=== PATIENT | female | born 1950 | race Caucasian/White ===

== ENCOUNTER 2017-10-28 20:00 | Inpatient (IN) ==
--- NOTE | 2017-10-28 20:14 | Emergency Department Note ---
Disposition Clinical Impression: Cellulitis Qualifiers: Site of cellulitis: extremity Site of cellulitis of extremity: lower extremity Laterality: left Qualified Code(s): L03.116 - Cellulitis of left lower limb Disposition: Admitted As Inpatient Condition: Fair General Adult HPI - General Chief complaint: ED Wound/Laceration Stated complaint: Abscess L Knee Nursing Notes Reviewed: Yes Vital Signs Reviewed: Yes - History of Present Illness HPI Narrative: 67-year-old female presents emergency department with concern for right lower extremity redness and swelling. Patient recently was on antibiotics from [place]. Was taking doxycycline. Patient states that they swelling or redness has gotten much worse. Patient denies any fevers. Denies any known spider or tick bites recently. Patient reports that the redness and swelling has started to radiate into the calf as well as her upper thigh. Patient denies IV drug use. Pain Scale: 4 - Related Data Home Medications Medication Instructions Recorded Confirmed Atorvastatin [Lipitor] 10 mg PO HS 10/28/17 10/28/17 Biotin 5,000 mcg PO 10/28/17 Calcium Carbonate/Vitamin D3 1 each PO DAILY 10/28/17 10/28/17 [Calcium 600 + Vit D Softgel] Dicyclomine [Bentyl] 10 mg PO QID 10/28/17 10/28/17 Esomeprazole Magnesium [Nexium] 40 mg PO BID 10/28/17 10/28/17 FLUoxetine HCl [Sarafem] 20 mg PO BID 10/28/17 10/28/17 Ferrous Sulfate 324 mg PO DAILY 10/28/17 10/28/17 Fexofenadine HCl [Allergy Relief] 180 mg PO DAILY 10/28/17 10/28/17 Gabapentin [Neurontin] 600 mg PO TID 10/28/17 10/28/17 Guaifenesin/Dm/Pseudoephedrine 1 each PO TID 10/28/17 10/28/17 [Capmist Dm Tablet] Ibuprofen [Motrin] 800 mg PO Q8HR 10/28/17 10/28/17 Multivit-Min/FA/Lycopen/Lutein 1 each PO DAILY 10/28/17 10/28/17 [Centrum Silver Tablet] Niacin [Plain Niacin] 500 mg PO DAILY 10/28/17 10/28/17 OxyCODONE ER (12 HR) [OxyCONTIN] 10 mg PO Q12HR 10/28/17 10/28/17 Raloxifene HCl 60 mg PO DAILY 10/28/17 10/28/17 Sulfamethoxazole/Trimeth DS 1 each PO BID 10/28/17 10/28/17 [Bactrim DS] Tizanidine HCl [Zanaflex] 4 mg PO HS 10/28/17 10/28/17 raNITIdine HCl [Zantac] 150 mg PO DAILY 10/28/17 10/28/17 valACYclovir [Valtrex] 500 mg PO DAILY 10/28/17 10/28/17 Allergies Allergy/AdvReac Type Severity Reaction Status Date / Time Oxytetracycline Allergy Hives Verified 10/28/17 20:05 [From Terramycin] All systems ED: reviewed and negative except as stated. Review of Systems: As Per HPI Constitutional: Denies: fever Cardiovascular: Denies: chest pain Respiratory: Denies: cough, dyspnea Gastrointestinal: Denies: abdominal pain, nausea, vomiting Genitourinary: Denies: urgency, dysuria, frequency Musculoskeletal: Reports: other (Pain behind left knee) Integumentary: Reports: other (Skin redness) Neurological: Denies: headache, numbness, paresthesias Endocrine: Denies: fatigue Physical Exam - Head Head exam: normocephalic - Eye Eye exam: Present: EOMI - ENT ENT exam: normal oropharynx - Neck Neck exam: Present: trachea midline - Chest Chest inspection: Present: symmetric chest wall rise - Respiratory Respiratory exam: Present: normal lung sounds bilaterally. Absent: respiratory distress - Cardiovascular Cardiovascular exam: Present: normal rhythm, tachycardia, normal heart sounds - Abdominal Exam Abdominal exam: Present: soft, Non-Tender. Absent: distention, guarding, rebound, rigidity - Extremities Exam Extremities exam: Present: other (Left lower extremity has erythema and redness behind the left knee in the popliteal fossa. There is no active area of drainage. No area of fluctuance. Neurovascularly intact) - Back Exam Back exam: Present: full ROM - Neurological Exam Neurological exam: Present: alert, oriented X3 - Psychiatric Psychiatric exam: Present: normal affect, normal mood - Skin Skin exam: Present: warm, dry, erythema (Of the left popliteal fossa) Course Vital Signs Temperature 100.1 F H 10/28/17 20:03 Pulse Rate 100 10/28/17 20:03 Respiratory Rate 16 10/28/17 20:03 Blood Pressure 174/78 10/28/17 20:03 O2 Sat by Pulse Oximetry 95 10/28/17 20:03 Temperature 98.7 F 10/29/17 07:16 Pulse Rate 105 10/29/17 07:16 Respiratory Rate 18 10/29/17 07:16 Blood Pressure 185/76 10/29/17 07:16 O2 Sat by Pulse Oximetry 95 10/29/17 07:16 Oxygen Delivery Oxygen Delivery Room Air Medical Decision Making - MDM Narrative Medical decision making narrative: 67-year-old female presents emergency department with concern for left lower extremity cellulitis. Patient is felt outpatient management with doxycycline. At this time, we obtained lower extremity CT and this reveals subcutaneous fat stranding and skin thickening predominantly in the posterior aspect of the left lower extremity compatible with cellulitis. There was noted visualize drainable fluid collection. No acute osseous normality. This is not a septic joint. Patient was able to ambulate on it. Patient started on vancomycin and Zosyn. Blood cultures were obtained. Lactic acid was normal. Patient does not have a leukocytosis. Kidney function was normal. Patient had a mildly elevated temperature at 100.1. However, we did lower this by giving antipyretics. Due to failing outpatient management, but is in the best interest of admitting this patient. 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 Family agrees with plan. Lower Extremity CT 10/28/17 20:23 IMPRESSION: 1. Subcutaneous fat stranding and skin thickening predominantly in the posterior aspect of the left lower extremity compatible with cellulitis versus bland edema. No drainable fluid collection. 2. No acute osseous abnormality. D/ / Jonathon Sharma MD / Jonathon Sharma MD Interpreting Provider: Jonathon Sharma MD - Lab Data Result diagrams: 10/29/17 04:05 10/29/17 04:05 Lab Results 10/28/17 10/28/17 10/28/17 Range/Units 20:26 20:26 20:26 WBC 7.0 (4.3-11.1) K/mcL RBC 4.12 (3.82-4.97) M/mcL Hgb 13.0 (11.5-15.4) g/dL Hct 38.1 (35.3-44.9) % MCV 92.5 (83.0-100.0) fL MCH 31.6 (28.0-33.3) pg MCHC 34.1 (31.6-35.5) g/dL RDW 15.6 H (11.5-14.5) % Plt Count 135 L (140-400) K/mcL MPV 10.6 (9.4-12.4) fL Immature Gran % 0.4 (0-4) % Seg Neutrophils % 76.1 % Lymphocytes % 14.4 % Monocytes % 8.5 % Eosinophils % 0.3 % Basophils % 0.3 % Neutrophils # 5.4 (1.6-8.9) K/mcL Lymphocytes # 1.0 (0.6-4.6) K/mcL Monocytes # 0.6 (0.0-1.3) K/mcL Eosinophils # 0.0 (0.0-0.6) K/mcL Basophils # 0.0 (0.0-0.2) K/mcL ESR 58 H (0-15) mm/hr PT (9.4-12.1) Seconds INR APTT (26.0-36.0) Seconds Sodium 134 L (136-145) mEq/L Potassium 3.9 (3.5-5.1) mEq/L Chloride 102 (98-107) mEq/L Carbon Dioxide 24 (23-29) mEq/L BUN 14 (8-23) mg/dL Creatinine 0.89 (0.60-1.20) mg/dL Est GFR ( Amer) > 60 (> 60) Est GFR (Non-Af Amer) > 60 (> 60) BUN/Creatinine Ratio 16 (6-26) Glucose 129 H (70-105) mg/dL Calculated Osmolality 280 (280-300) Lactic Acid (0.5-2.2) mmol/L Calcium 8.9 (8.6-10.3) mg/dL Magnesium (1.6-2.6) mg/dL Total Bilirubin (0.3-1.0) mg/dL AST (13-39) Units/L ALT (7-52) Units/L Alkaline Phosphatase (34-104) Units/L C-Reactive Protein 118 H (Less than 10) mg/L Serum Total Protein (6.4-8.9) g/dL Albumin (3.5-5.7) g/dL Globulin (2.4-3.5) g/dL Albumin/Globulin Ratio (1.1-2.2) 10/28/17 10/29/17 10/29/17 Range/Units 20:40 04:05 04:05 WBC 9.7 (4.3-11.1) K/mcL RBC 4.23 (3.82-4.97) M/mcL Hgb 13.4 (11.5-15.4) g/dL Hct 39.4 (35.3-44.9) % MCV 93.1 (83.0-100.0) fL MCH 31.7 (28.0-33.3) pg MCHC 34.0 (31.6-35.5) g/dL RDW 15.6 H (11.5-14.5) % Plt Count 141 (140-400) K/mcL MPV 10.6 (9.4-12.4) fL Immature Gran % 0.7 (0-4) % Seg Neutrophils % 78.0 % Lymphocytes % 12.6 % Monocytes % 8.4 % Eosinophils % 0.0 % Basophils % 0.3 % Neutrophils # 7.5 (1.6-8.9) K/mcL Lymphocytes # 1.2 (0.6-4.6) K/mcL Monocytes # 0.8 (0.0-1.3) K/mcL Eosinophils # 0.0 (0.0-0.6) K/mcL Basophils # 0.0 (0.0-0.2) K/mcL ESR (0-15) mm/hr PT 12.6 H (9.4-12.1) Seconds INR 1.1 APTT 28.7 (26.0-36.0) Seconds Sodium (136-145) mEq/L Potassium (3.5-5.1) mEq/L Chloride (98-107) mEq/L Carbon Dioxide (23-29) mEq/L BUN (8-23) mg/dL Creatinine (0.60-1.20) mg/dL Est GFR ( Amer) (> 60) Est GFR (Non-Af Amer) (> 60) BUN/Creatinine Ratio (6-26) Glucose (70-105) mg/dL Calculated Osmolality (280-300) Lactic Acid 1.1 (0.5-2.2) mmol/L Calcium (8.6-10.3) mg/dL Magnesium (1.6-2.6) mg/dL Total Bilirubin (0.3-1.0) mg/dL AST (13-39) Units/L ALT (7-52) Units/L Alkaline Phosphatase (34-104) Units/L C-Reactive Protein (Less than 10) mg/L Serum Total Protein (6.4-8.9) g/dL Albumin (3.5-5.7) g/dL Globulin (2.4-3.5) g/dL Albumin/Globulin Ratio (1.1-2.2) /16/18 Range/Units 04:05 WBC (4.3-11.1) K/mcL RBC (3.82-4.97) M/mcL Hgb (11.5-15.4) g/dL Hct (35.3-44.9) % MCV (83.0-100.0) fL MCH (28.0-33.3) pg MCHC (31.6-35.5) g/dL RDW (11.5-14.5) % Plt Count (140-400) K/mcL MPV (9.4-12.4) fL Immature Gran % (0-4) % Seg Neutrophils % % Lymphocytes % % Monocytes % % Eosinophils % % Basophils % % Neutrophils # (1.6-8.9) K/mcL Lymphocytes # (0.6-4.6) K/mcL Monocytes # (0.0-1.3) K/mcL Eosinophils # (0.0-0.6) K/mcL Basophils # (0.0-0.2) K/mcL ESR (0-15) mm/hr PT (9.4-12.1) Seconds INR APTT (26.0-36.0) Seconds Sodium 137 (136-145) mEq/L Potassium 3.8 (3.5-5.1) mEq/L Chloride 106 (98-107) mEq/L Carbon Dioxide 22 L (23-29) mEq/L BUN 13 (8-23) mg/dL Creatinine 0.86 (0.60-1.20) mg/dL Est GFR ( Amer) > 60 (> 60) Est GFR (Non-Af Amer) > 60 (> 60) BUN/Creatinine Ratio 15 (6-26) Glucose 124 H (70-105) mg/dL Calculated Osmolality 286 (280-300) Lactic Acid (0.5-2.2) mmol/L Calcium 8.7 (8.6-10.3) mg/dL Magnesium 1.9 (1.6-2.6) mg/dL Total Bilirubin 0.7 (0.3-1.0) mg/dL AST 31 (13-39) Units/L ALT 25 (7-52) Units/L Alkaline Phosphatase 68 (34-104) Units/L C-Reactive Protein (Less than 10) mg/L Serum Total Protein 6.8 (6.4-8.9) g/dL Albumin 3.8 (3.5-5.7) g/dL Globulin 3.0 (2.4-3.5) g/dL Albumin/Globulin Ratio 1.3 (1.1-2.2)
[2017-10-28] MEDS ORDERED: Isovue-370 500 ML INFUS..BTL IV ONE (20:23)
[2017-10-28] MEDS ORDERED: 0.9 % Sodium Chloride 1,000 ML IVC ONE (20:25)
[2017-10-28] MEDS ORDERED: *HR* FentaNYL (PF) 100 MCG/2 ML VIAL IVP ONE (20:25)
[2017-10-28 20:54] LABS: Basophils % 0.3 %; Eosinophils % 0.3 %; Hematocrit 38.1 % (35.3-44.9); Immature Granulocytes % 0.4 % (0-4); Lymphocytes % 14.4 %; Mean Corpuscular HGB Conc 34.1 g/dL (31.6-35.5); Mean Corpuscular Hemoglobin 31.6 pg (28.0-33.3); Mean Corpuscular Volume 92.5 fL (83.0-100.0); Mean Platelet Volume 10.6 fL (9.4-12.4); Monocytes # 0.6 K/mcL (0.0-1.3); Monocytes % 8.5 %; Neutrophils # 5.4 K/mcL (1.6-8.9); Platelet Count 135 K/mcL (140-400); Red Blood Count 4.12 M/mcL (3.82-4.97); Red Cell Distribution Width 15.6 % (11.5-14.5); Segmented Neutrophils % 76.1 %
[2017-10-28 21:11] LABS: BUN/Creatinine Ratio 16 (6-26); Blood Urea Nitrogen 14 mg/dL (8-23); C-Reactive Protein 118 mg/L (Less than 10); Calcium 8.9 mg/dL (8.6-10.3); Carbon Dioxide 24 mEq/L (23-29); Chloride 102 mEq/L (98-107); Glucose 129 mg/dL (70-105); Osmolality,Calculated 280 (280-300); Potassium 3.9 mEq/L (3.5-5.1); Sodium 134 mEq/L (136-145); eGFR For African Americans > 60 (> 60); eGFR For Non-African Americans > 60 (> 60)
[2017-10-28] MEDS ORDERED: Piperacillin/Tazobactam 3.375 GM in 0.9 % Sodium Chloride Mini Bag 100 ML IVPB ONE (21:33)
--- NOTE | 2017-10-28 22:22 | Emergency Department Note ---
Disposition Clinical Impression: Cellulitis Disposition: Admitted As Inpatient Condition: Fair Forms: ED Satisfaction Letter General Adult HPI - General Chief complaint: ED Wound/Laceration Stated complaint: Abscess L Knee Time Seen by Provider: 10/28/17 20:14 Source: patient Mode of arrival: ambulatory Limitations: no limitations Nursing Notes Reviewed: Yes Vital Signs Reviewed: Yes - History of Present Illness Pain Scale: 4 - Related Data Allergies Allergy/AdvReac Type Severity Reaction Status Date / Time Oxytetracycline Allergy Hives Verified 10/28/17 20:05 [From Terramycin] Past Medical History - Past Medical History Medical history: Reports: non-contributory - Social History Smoking Status: Never smoker Alcohol use: Reports: none Drug use: Reports: none Physical Exam - General Limitations: no limitations General appearance: alert Course Vital Signs Temperature 100.1 F H 10/28/17 20:03 Pulse Rate 100 10/28/17 20:03 Respiratory Rate 16 10/28/17 20:03 Blood Pressure 174/78 10/28/17 20:03 O2 Sat by Pulse Oximetry 95 10/28/17 20:03 Temperature 100.1 F H 10/28/17 20:51 Pulse Rate 100 10/28/17 20:51 Respiratory Rate 16 10/28/17 20:51 Blood Pressure 174/78 10/28/17 20:51 O2 Sat by Pulse Oximetry 95 10/28/17 20:51 Oxygen Delivery Oxygen Delivery Room Air Medical Decision Making - Lab Data Result diagrams: 10/28/17 20:26 10/28/17 20:26 Lab Results 10/28/17 10/28/17 10/28/17 Range/Units 20:26 20:26 20:26 WBC 7.0 (4.3-11.1) K/mcL RBC 4.12 (3.82-4.97) M/mcL Hgb 13.0 (11.5-15.4) g/dL Hct 38.1 (35.3-44.9) % MCV 92.5 (83.0-100.0) fL MCH 31.6 (28.0-33.3) pg MCHC 34.1 (31.6-35.5) g/dL RDW 15.6 H (11.5-14.5) % Plt Count 135 L (140-400) K/mcL MPV 10.6 (9.4-12.4) fL Immature Gran % 0.4 (0-4) % Seg Neutrophils % 76.1 % Lymphocytes % 14.4 % Monocytes % 8.5 % Eosinophils % 0.3 % Basophils % 0.3 % Neutrophils # 5.4 (1.6-8.9) K/mcL Lymphocytes # 1.0 (0.6-4.6) K/mcL Monocytes # 0.6 (0.0-1.3) K/mcL Eosinophils # 0.0 (0.0-0.6) K/mcL Basophils # 0.0 (0.0-0.2) K/mcL ESR 58 H (0-15) mm/hr Sodium 134 L (136-145) mEq/L Potassium 3.9 (3.5-5.1) mEq/L Chloride 102 (98-107) mEq/L Carbon Dioxide 24 (23-29) mEq/L BUN 14 (8-23) mg/dL Creatinine 0.89 (0.60-1.20) mg/dL Est GFR ( Amer) > 60 (> 60) Est GFR (Non-Af Amer) > 60 (> 60) BUN/Creatinine Ratio 16 (6-26) Glucose 129 H (70-105) mg/dL Calculated Osmolality 280 (280-300) Lactic Acid (0.5-2.2) mmol/L Calcium 8.9 (8.6-10.3) mg/dL C-Reactive Protein 118 H (Less than 10) mg/L 10/28/17 Range/Units 20:40 WBC (4.3-11.1) K/mcL RBC (3.82-4.97) M/mcL Hgb (11.5-15.4) g/dL Hct (35.3-44.9) % MCV (83.0-100.0) fL MCH (28.0-33.3) pg MCHC (31.6-35.5) g/dL RDW (11.5-14.5) % Plt Count (140-400) K/mcL MPV (9.4-12.4) fL Immature Gran % (0-4) % Seg Neutrophils % % Lymphocytes % % Monocytes % % Eosinophils % % Basophils % % Neutrophils # (1.6-8.9) K/mcL Lymphocytes # (0.6-4.6) K/mcL Monocytes # (0.0-1.3) K/mcL Eosinophils # (0.0-0.6) K/mcL Basophils # (0.0-0.2) K/mcL ESR (0-15) mm/hr Sodium (136-145) mEq/L Potassium (3.5-5.1) mEq/L Chloride (98-107) mEq/L Carbon Dioxide (23-29) mEq/L BUN (8-23) mg/dL Creatinine (0.60-1.20) mg/dL Est GFR ( Amer) (> 60) Est GFR (Non-Af Amer) (> 60) BUN/Creatinine Ratio (6-26) Glucose (70-105) mg/dL Calculated Osmolality (280-300) Lactic Acid 1.1 (0.5-2.2) mmol/L Calcium (8.6-10.3) mg/dL C-Reactive Protein (Less than 10) mg/L Attestation Statement - Attestation Attestation: I, Serge Shah, examined this patient and my medical decision-making was reviewed with the CLOTH MEASURER/PA/Advanced Practice Nurse/Resident Physician. I agree with the documented findings, disposition and treatment plan as described except to the extent set forth below. 67-year-old female presents emergency Department with concerns of left posterior knee pain. Patient states symptoms started 5 days ago, they progressively worsened. She was seen 3 days ago at [facility] where they prescribed antibiotics and sent her home. Patient states she thinks the antibiotic was doxycycline however she has seen progressively worsening of the pain and erythema behind the left knee. Patient states the erythema is now tracking up her posterior left thigh. There also noted drainage of purulent material from the area behind the left knee. Patient has reported subjective fever, her temp is elevated but not febrile in the emergency department. Examination of the left posterior knee shows induration and erythema with pain to palpation but no definable area of fluctuance. Pulses are equal in the bilateral lower extremity. CT of the left lower extremity shows cellulitic changes but no definable abscess. Patient will be admitted to the hospital for failure of outpatient antibiotic. She was started on vancomycin and Zosyn in the emergency department.
[2017-10-29] MEDS ORDERED: Naloxone 0.4 MG/ML INJ IVP PRN (02:05)
[2017-10-29] MEDS ORDERED: Ibuprofen 400 MG TABLET PO PRN (02:05)
[2017-10-29] MEDS ORDERED: traMADol 50 MG TABLET PO PRN (02:05)
[2017-10-29] MEDS ORDERED: 0.9 % Sodium Chloride 1,000 ML IVC SCH (02:15)
--- NOTE | 2017-10-29 02:23 | Internal Med History&Physical ---
Date of Encounter: 10/29/17 Time of Encounter: 01:20 Internal Medicine - H&P: HPI Chief complaint: left leg infection Admitted From: Emergency Dept Plans for Post Hospital Care: Home History of present illness: Ms. Maurer is a 67 year old female who presents to the ER tonight after having failed outpatient antibiotics for a skin and soft tissue infection behind her left knee. She went to [facility] ER several days ago and was placed on Bactrim for presumed abscess and cellulitis. Despite antibiotics, her infection worsened and she developed fevers and chills. She therefore came to the ER where she was found to have evidence of cellulitis and presumptive abscess. She had imaging by CT scan which confirmed significant cellulitis but no true abscess formation of soft tissues. She was then admitted to hospitalist service. Upon my assessment of the patient, she confirmed the above history. She states the pain and warmth have worsened over the last few days. She also has had some drainage and seepage from her wound. She denies any direct trauma or injury to her leg. She thought that she might have had an insect bite or spider bite, but she did not notice any kind of actual insect or spider puncturing her skin. She denies any history of diabetes. She denies any exposures to any community-acquired MRSA. Past Med Surg Social Fam HX - Past Medical History Attestation: Yes The following information was validated with the patient. Source: patient, other (ER records) Medical history: other (chronic back pain) Additional medical history: menigioma -- neurosurgery x 2 Psychiatric history: anxiety, depression - Past Surgical History Surgical History: cancer surgery (neurosurgery) - Social History Smoking Status: Never smoker Smokeless Tobacco Status: Yes Alcohol use: none Drug use: none Current living situation: Home Activity Level: Independent ambulation Recent Out of Country Travel Within the Last 8 Weeks: No - Family History Mother History Unknown: Yes Living Status: Father History Unknown: Yes Living Status: Internal Medicine - H&P: Meds Atorvastatin [Lipitor] 10 mg PO HS 10/28/17 [History] Biotin 5,000 mcg PO 10/28/17 [History] Calcium Carbonate/Vitamin D3 [Calcium 600 + Vit D Softgel] 1 each PO DAILY 10/28 [History] Dicyclomine [Bentyl] 10 mg PO QID 10/28/17 [History] Esomeprazole Magnesium [Nexium] 40 mg PO BID 10/28/17 [History] FLUoxetine HCl [Sarafem] 20 mg PO BID 10/28/17 [History] Ferrous Sulfate 324 mg PO DAILY 10/28/17 [History] Fexofenadine HCl [Allergy Relief] 180 mg PO DAILY 10/28/17 [History] Gabapentin [Neurontin] 600 mg PO TID 10/28/17 [History] Guaifenesin/Dm/Pseudoephedrine [Capmist Dm Tablet] 1 each PO TID 10/28/17 [ History] Ibuprofen [Motrin] 800 mg PO Q8HR 10/28/17 [History] Multivit-Min/FA/Lycopen/Lutein [Centrum Silver Tablet] 1 each PO DAILY 10/28/17 [History] Niacin [Plain Niacin] 500 mg PO DAILY 10/28/17 [History] OxyCODONE ER (12 HR) [OxyCONTIN] 10 mg PO Q12HR 10/28/17 [History] Raloxifene HCl 60 mg PO DAILY 10/28/17 [History] Sulfamethoxazole/Trimeth DS [Bactrim DS] 1 each PO BID 10/28/17 [History] Tizanidine HCl [Zanaflex] 4 mg PO HS 10/28/17 [History] raNITIdine HCl [Zantac] 150 mg PO DAILY 10/28/17 [History] valACYclovir [Valtrex] 500 mg PO DAILY 10/28/17 [History] 3 Allergy/AdvReac Type Severity Reaction Status Date / Time Oxytetracycline Allergy Hives Verified 10/28/17 20:05 [From Terramycin] - Constitutional Constitutional: chills, fever(s) - EENT Eyes: no change in vision Ears: no ear pain, no tinnitus Nose, mouth and throat: no nasal congestion, no sore throat - Cardiovascular Cardiovascular ROS IM: no chest pain, no dyspnea, no dyspnea on exertion - Respiratory Respiratory: no cough, no chest congestion - Gastrointestinal Gastrointestinal: no abdominal pain, no diarrhea, no hematemesis, no hematochezia, no melena, no vomiting - Genitourinary Genitourinary: no dysuria, no flank pain, no hematuria - Musculoskeletal Musculoskeletal ROS IM: other (pain/warmth to area of cellulitis left posterior/ popliteal area), no arthralgias, no back pain - Integumentary Integumentary IM: sores (left popliteal), no rash - Neurological Neurological ROS: headache(s), no dizziness, no focal weakness, no frequent falls - Psychiatric Psychiatric: no anxiety, no depression - Endocrine Endocrine IM: no polydipsia, no polyuria - Allergic/Immunologic Allergic/Immunologic: no GI upset with certain foods - Constitutional Vitals: Temp Pulse Resp BP Pulse Ox 99.7 F H 93 18 169/81 95 10/29/17 01:06 10/29/17 01:06 10/29/17 01:06 10/29/17 01:06 10/28/17 20:51 General appearance: Present: mild distress, A&O X 3, answers questions appropriately - Head Head exam: Present: normal inspection - Eye Eye exam: Present: EOMI, PERRL. Absent: scleral icterus Pupils: Present: normal accommodation - ENT ENT exam: Present: mucous membranes dry, normal exam, normal oropharynx - Neck Neck exam general surgery: Present: full ROM, supple. Absent: tenderness, nuchal rigidity, thyromegaly - Respiratory Respiratory exam: Present: CTAB. Absent: chest wall tenderness, rales, respiratory distress, rhonchi, wheezes - Cardiovascular Cardiovascular exam: Present: RRR, +S1, +S2. Absent: diastolic murmur, systolic murmur - GI/Abdominal GI/Abdominal exam: Present: normal bowel sounds, soft. Absent: hepatomegaly, splenomegaly, tenderness - Extremities Exam Extremities exam: Present: full ROM, normal capillary refill, tenderness (area of cellulitis and draining lesion left leg just below the knee along popliteal area), warm, radial pulses palpable and symmetrical. Absent: joint swelling, pedal edema - Back Exam Back exam: Absent: CVA tenderness (L), CVA tenderness (R) - Neurological Exam Neurological exam: Present: alert, CN II-XII intact, oriented X3, no focal deficits - Psychiatric Psychiatric exam: Present: normal affect, normal mood - Skin Skin exam: Present: dry, warm Additional comments: cellulitis/draining lesion along left popliteal area Internal Med - H&P Results - Labs CBC & Chem 7: 10/28/17 20:26 10/28/17 20:26 - Assessment and plan (1) Cellulitis Current Visit: Yes Status: Acute Assessment and plan: 1. Patient had blood cultures drawn in ER. 2. I asked RN to obtain culture of wound/draining lesion. 3. Suspicious for MRSA. 4. Contact precautions. 5. Will place on IV Vancomycin and Zosyn. Qualifiers: Site of cellulitis: extremity Site of cellulitis of extremity: lower extremity Laterality: left Qualified Code(s): L03.116 - Cellulitis of left lower limb (2) Chronic back pain Current Visit: Yes Status: Chronic Assessment and plan: 1. Continue home meds as appropriate. 2. Ambulate TID with assistance. Qualifiers: Back pain location: back pain in unspecified location Back pain laterality : bilateral Qualified Code(s): M54.9 - Dorsalgia, unspecified; G89.29 - Other chronic pain (3) DVT prophylaxis Current Visit: Yes Status: Acute Assessment and plan: 1. Heparin SQ.
[2017-10-29 05:17] LABS: Basophils % 0.3 %; Hematocrit 39.4 % (35.3-44.9); Hemoglobin 13.4 g/dL (11.5-15.4); Immature Granulocytes % 0.7 % (0-4); Lymphocytes # 1.2 K/mcL (0.6-4.6); Lymphocytes % 12.6 %; Mean Corpuscular Hemoglobin 31.7 pg (28.0-33.3); Mean Corpuscular Volume 93.1 fL (83.0-100.0); Mean Platelet Volume 10.6 fL (9.4-12.4); Monocytes # 0.8 K/mcL (0.0-1.3); Monocytes % 8.4 %; Neutrophils # 7.5 K/mcL (1.6-8.9); Platelet Count 141 K/mcL (140-400); Red Blood Count 4.23 M/mcL (3.82-4.97); Red Cell Distribution Width 15.6 % (11.5-14.5)
[2017-10-29 05:23] LABS: INR 1.1; Prothrombin Time 12.6 Seconds (9.4-12.1)
[2017-10-29 05:26] LABS: Activated Partial Thrombo Time 28.7 Seconds (26.0-36.0)
[2017-10-29 05:37] LABS: Alanine Aminotransferase 25 Units/L (7-52); Albumin 3.8 g/dL (3.5-5.7); Albumin/Globulin Ratio 1.3 (1.1-2.2); Alkaline Phosphatase 68 Units/L (34-104); Aspartate Amino Transferase 31 Units/L (13-39); BUN/Creatinine Ratio 15 (6-26); Bilirubin,Total 0.7 mg/dL (0.3-1.0); Blood Urea Nitrogen 13 mg/dL (8-23); Calcium 8.7 mg/dL (8.6-10.3); Carbon Dioxide 22 mEq/L (23-29); Chloride 106 mEq/L (98-107); Glucose 124 mg/dL (70-105); Magnesium 1.9 mg/dL (1.6-2.6); Osmolality,Calculated 286 (280-300); Potassium 3.8 mEq/L (3.5-5.1); Sodium 137 mEq/L (136-145); Total Protein 6.8 g/dL (6.4-8.9); eGFR For African Americans > 60 (> 60); eGFR For Non-African Americans > 60 (> 60)
[2017-10-29] MEDS: *HR* OxyCODONE ER (12 HR) 10 MG TABLET PO SCH ×2 (05:42→18:34)
[2017-10-29] MEDS: Famotidine 20 MG TABLET PO SCH (05:42)
[2017-10-29] MEDS: *HR* Heparin 5,000 UNIT/ML VIAL SQ SCH ×2 (05:43→16:59)
[2017-10-29] MEDS: Loratadine 10 MG TABLET PO SCH (10:12)
[2017-10-29] MEDS: FLUoxetine 20 MG CAPSULE PO SCH ×2 (10:12→21:18)
[2017-10-29] MEDS: Piperacillin/Tazobactam 3.375 GM in 0.9 % Sodium Chloride Mini Bag 100 ML IVPB SCH ×2 (10:12→16:58)
[2017-10-29] MEDS: valACYclovir 500 MG TABLET PO SCH (10:12)
[2017-10-29] MEDS: Gabapentin 300 MG CAPSULE PO SCH ×3 (10:12→21:18)
--- NOTE | 2017-10-29 11:15 | Event Note ---
Date of Encounter: 10/29/17 Time of Encounter: 09:40 Hx noted, 67 year old female with no known hx of DM is admitted for cellulitis in L popliteal fossa region, failed oupt therapy with PO bactrim. No abscess seen on CT but had some drainage which was sent for culture. On vanc/zosyn and improving. Continue for now. Pending culture result and de-escalation of abx. Mildly elevated fasting blood glucose, will send A1c tomorrow.
[2017-10-30] MEDS: Piperacillin/Tazobactam 3.375 GM in 0.9 % Sodium Chloride Mini Bag 100 ML IVPB SCH ×3 (00:37→15:45)
[2017-10-30] MEDS: *HR* OxyCODONE ER (12 HR) 10 MG TABLET PO SCH ×2 (06:14→17:58)
[2017-10-30] MEDS: Famotidine 20 MG TABLET PO SCH (06:15)
[2017-10-30] MEDS: *HR* Heparin 5,000 UNIT/ML VIAL SQ SCH ×2 (06:15→17:58)
[2017-10-30 07:05] LABS: Basophils % 0.4 %; Eosinophils # 0.1 K/mcL (0.0-0.6); Eosinophils % 2.1 %; Hematocrit 37.5 % (35.3-44.9); Hemoglobin 12.6 g/dL (11.5-15.4); Immature Granulocytes % 0.6 % (0-4); Lymphocytes # 2.6 K/mcL (0.6-4.6); Lymphocytes % 37.5 %; Mean Corpuscular HGB Conc 33.6 g/dL (31.6-35.5); Mean Corpuscular Volume 92.1 fL (83.0-100.0); Mean Platelet Volume 10.1 fL (9.4-12.4); Monocytes # 0.6 K/mcL (0.0-1.3); Neutrophils # 3.4 K/mcL (1.6-8.9); Platelet Count 151 K/mcL (140-400); Red Blood Count 4.07 M/mcL (3.82-4.97); Red Cell Distribution Width 15.8 % (11.5-14.5); Segmented Neutrophils % 50.4 %
[2017-10-30 07:08] LABS: Estimated Average Glucose 137 mg/dl; Hemoglobin A1C 6.4 %
[2017-10-30 07:23] LABS: BUN/Creatinine Ratio 18 (6-26); Blood Urea Nitrogen 13 mg/dL (8-23); Calcium 8.8 mg/dL (8.6-10.3); Carbon Dioxide 23 mEq/L (23-29); Chloride 110 mEq/L (98-107); Glucose 96 mg/dL (70-105); Osmolality,Calculated 294 (280-300); Potassium 3.6 mEq/L (3.5-5.1); Sodium 142 mEq/L (136-145); eGFR For African Americans > 60 (> 60); eGFR For Non-African Americans > 60 (> 60)
[2017-10-30] MEDS: Loratadine 10 MG TABLET PO SCH (10:12)
[2017-10-30] MEDS: Gabapentin 300 MG CAPSULE PO SCH ×3 (10:12→21:24)
[2017-10-30] MEDS: FLUoxetine 20 MG CAPSULE PO SCH ×2 (10:12→21:25)
[2017-10-30] MEDS: valACYclovir 500 MG TABLET PO SCH (10:13)
--- NOTE | 2017-10-30 20:52 | Internal Med Progress Note ---
Date of Encounter: 10/30/17 Time of Encounter: 20:51 - Assessment and plan (1) Cellulitis Status: Acute Qualifiers: Site of cellulitis: extremity Site of cellulitis of extremity: lower extremity Laterality: left Qualified Code(s): L03.116 - Cellulitis of left lower limb (2) Chronic back pain Status: Chronic Qualifiers: Back pain location: back pain in unspecified location Back pain laterality : bilateral Qualified Code(s): M54.9 - Dorsalgia, unspecified; G89.29 - Other chronic pain (3) GERD (gastroesophageal reflux disease) Status: Chronic Qualifiers: Esophagitis presence: esophagitis presence not specified Qualified Code(s) : K21.9 - Gastro-esophageal reflux disease without esophagitis - Time Spent With Patient Total time spent is greater than 50% in coordination of care (as documented) at patient's floor/unit and/or counseling patient: 25 - 35 minutes - Subjective Interval history: .. The patient reports to me less pain and swelling behind her left knee. She is able to ambulate on her own. He denies chest pain. Denies difficulty breathing, coughing and wheezing. Denies abdominal pain, nausea and vomiting. She makes good amounts of urine; no urinary symptoms. OBJECTIVE: .. Skin: There is mild swelling located behind the patient's left knee. It is associated with some reddish/bluish discoloration. The area is tender to palpation. Respiratory: Normal breath sounds; no crackles or wheezes. CV: Heart is regular; no gallop or murmur. GI: Abdomen is soft and not tender. There is no palpable mass or visceromegaly. Neuro: There is no focal deficits. ASSESSMENT AND PLAN: .. Cellulitis of the area located behind the left knee. Better. We will continue IV vancomycin and IV Zosyn. Cultures are pending. Chronic back pain. Would continue extended release oxycodone and scheduled ibuprofen. The patient is on Prozac and Neurontin. She gets when necessary tramadol. GERD. Under control. Continue omeprazole. - Constitutional Vitals: Temp Pulse Resp BP Pulse Ox 98.3 F 81 15 171/79 96 10/30/17 18:55 10/30/17 18:55 10/30/17 18:55 10/30/17 18:55 10/30/17 18:55 General appearance: Present: mild distress, A&O X 3, answers questions appropriately Internal Medicine: Result - Labs CBC & Chem 7: 10/30/17 06:36 10/30/17 06:36 Labs: Short CBC 10/30/17 Range/Units 06:36 WBC 6.8 (4.3-11.1) K/mcL Hgb 12.6 (11.5-15.4) g/dL Hct 37.5 (35.3-44.9) % Plt Count 151 (140-400) K/mcL Neutrophils # 3.4 (1.6-8.9) K/mcL BMP 10/30/17 06:36 Sodium 142 Potassium 3.6 Chloride 110 H Carbon Dioxide 23 BUN 13 Creatinine 0.73 Glucose 96 Calcium 8.8 - ABG Interpretation ABG results: PT/INR, D-dimer PT 12.6 Seconds (9.4-12.1) H 10/29/17 04:05 Consult Discharge Plan - Plan Additional Instructions: The patient is not to take fluoxetine and tramandol, when taking Zyvox.. Referrals: Beverly Clifford [Primary Care Provider] - 11/06/17 3:00 pm Prescriptions: Linezolid [Zyvox] 600 mg PO BID 12 Days #24 tablet
[2017-10-31] MEDS: Piperacillin/Tazobactam 3.375 GM in 0.9 % Sodium Chloride Mini Bag 100 ML IVPB SCH ×2 (00:44→07:37)
[2017-10-31] MEDS: *HR* Heparin 5,000 UNIT/ML VIAL SQ SCH (06:38)
[2017-10-31] MEDS: Famotidine 20 MG TABLET PO SCH (06:38)
[2017-10-31] MEDS: *HR* OxyCODONE ER (12 HR) 10 MG TABLET PO SCH (06:38)
[2017-10-31] MEDS: Gabapentin 300 MG CAPSULE PO SCH ×2 (07:38→14:22)
[2017-10-31] MEDS: FLUoxetine 20 MG CAPSULE PO SCH (07:38)
[2017-10-31] MEDS: Loratadine 10 MG TABLET PO SCH (07:38)
[2017-10-31] MEDS: valACYclovir 500 MG TABLET PO SCH (07:38)
[2017-10-31 11:14] VITALS: BP 134/69
--- NOTE | 2017-10-31 15:00 | Discharge Summary ---
Date of Encounter: 10/31/17 Time of Encounter: 14:57 - Discharge Diagnosis (1) Cellulitis Priority: Primary Status: Acute Qualifiers: Site of cellulitis: extremity Site of cellulitis of extremity: lower extremity Laterality: left Qualified Code(s): L03.116 - Cellulitis of left lower limb (2) Chronic back pain Priority: Secondary Status: Chronic Qualifiers: Back pain location: back pain in unspecified location Back pain laterality : bilateral Qualified Code(s): M54.9 - Dorsalgia, unspecified; G89.29 - Other chronic pain (3) GERD (gastroesophageal reflux disease) Status: Chronic Qualifiers: Esophagitis presence: esophagitis presence not specified Qualified Code(s) : K21.9 - Gastro-esophageal reflux disease without esophagitis Hospital course: Ms. Maurer is a 67 year old female Discharge discussed with: patient, family - Time Spent with Patient Total time spent providing and/or coordinating discharge services: Greater than 30 minutes (40 minutes) - Discharge Medications Prescriptions: Linezolid [Zyvox] 600 mg PO BID 12 Days #24 tablet Home Medications: Atorvastatin [Lipitor] 10 mg PO HS 10/28/17 [History] Biotin 5,000 mcg PO DAILY 10/28/17 [History] Calcium Carbonate/Vitamin D3 [Calcium 600 + Vit D Softgel] 1 cap PO DAILY [History] Dicyclomine [Bentyl] 10 - 20 mg PO QID PRN 10/28/17 [History] Esomeprazole Magnesium [Nexium] 40 mg PO BID 10/28/17 [History] FLUoxetine HCl [Sarafem] 20 mg PO BID 10/28/17 [History] Ferrous Sulfate 324 mg PO DAILY 10/28/17 [History] Fexofenadine HCl [Allergy Relief] 180 mg PO DAILY 10/28/17 [History] Gabapentin [Neurontin] 600 mg PO TID 10/28/17 [History] Guaifenesin/Dm/Pseudoephedrine [Capmist Dm Tablet] 1 tab PO TID PRN 10/28/17 [ History] Ibuprofen [Motrin] 800 mg PO Q8HR 10/28/17 [History] Multivit-Min/FA/Lycopen/Lutein [Centrum Silver Tablet] 1 each PO DAILY 10/28/17 [History] Niacin [Plain Niacin] 500 mg PO DAILY 10/28/17 [History] OxyCODONE ER (12 HR) [OxyCONTIN] 10 mg PO Q12HR 10/28/17 [History] Raloxifene HCl 60 mg PO DAILY 10/28/17 [History] Tizanidine HCl [Zanaflex] 4 - 8 mg PO HS 10/28/17 [History] raNITIdine HCl [Zantac] 150 mg PO HS 10/28/17 [History] valACYclovir [Valtrex] 500 mg PO DAILY 10/28/17 [History] Linezolid [Zyvox] 600 mg PO BID 12 Days #24 tablet 10/31/17 [Rx] Allergies/Adverse Reactions: 3 Allergy/AdvReac Type Severity Reaction Status Date / Time Oxytetracycline Allergy Hives Verified 10/28/17 20:05 [From Terramycin] Date of admission: 10/29/17 04:15 Primary care physician: Beverly Clifford Discharging clinician: Tyler Amador Anticipated date of discharge: 10/31/17 - Constitutional Vitals: Temp Pulse Resp BP Pulse Ox 98.3 F 73 18 134/69 96 10/31/17 11:12 10/31/17 11:12 10/31/17 11:12 10/31/17 11:12 10/31/17 11:12 General appearance: Present: A&O X 3, pleasant, answers questions appropriately - Respiratory Respiratory exam: Present: CTAB. Absent: accessory muscle use, rales, rhonchi, wheezes - Cardiovascular Cardiovascular exam: Present: RRR, +S1, +S2. Absent: diastolic murmur, gallop, rubs, systolic murmur - GI/Abdominal GI/Abdominal exam: Present: normal bowel sounds, soft, no peritoneal signs. Absent: distended, tenderness - Other Additional findings: There is some reddish/brownish discoloration of her skin behind the patient's left knee.It is associated with mild swelling. The inflammation in that area has definitely decreased, when comparing to yesterday. - Patient Status Disposition: Home, Self-Care Condition: Good Functional capacity at discharge: independent ambulation - Discharge Instructions Follow Up With: Beverly Clifford [Primary Care Provider] - 11/06/17 3:00 pm Additional Instructions: The patient is not to take fluoxetine and tramandol, when taking Zyvox.. - Diet and Activity Activity: resume usual activities as tolerated - VTE Deep Vein Thrombosis/Pulmonary Embolism Present on Admission: No
== END 2017-10-31 15:52 | disposition home or self-care (01) | DRG 603 ==
LOC: 3ANU 20:00 → EMEROO 20:00 → 3ANU 23:51 → SUATTDRO 10-29 04:15
PROVIDERS: ADMIT Family Medicine; ATTEND Internal Medicine